=== PATIENT | male | born 1965 ===

== ENCOUNTER 2018-09-10 15:01 | Emergency (ER) | payer BC ==
[2018-09-10] MEDS ORDERED: Diph,Pert(Acell),Tet Vac 0.5 ML SYR IM ONE (15:22)
--- NOTE | 2018-09-10 15:33 | Emergency Department Record ---
History of Present Illness - General Chief Complaint: Laceration(s) Stated Complaint: LT INDEX LAC Time Seen by Provider: 09/10/18 15:22 Source: Patient Mode of Arrival: Ambulatory Limitations: No limitations - History of Present Illness Initial Commments: 52 yo male presents after injury to his left index finger. He accidentally injured it with a circular saw. He is unsure of his last tetanus vaccination. He is right handed. This accident occurred at home working on fixing up an old camper. His finger got caught by the guard and it hit the blade. He can fulling move the finger flexing and extending. No other injuries noted. -: Minutes(s) Extremity Location: Left: Hand (Index finger) Place: Home Context: Accidental (circular saw) Associated Symptoms: None Treatments Prior to Arrival: Bandage - [place] Coma Scale Eye Response: (4) Open spontaneously Motor Response: (6) Obeys commands Verbal Response: (5) Oriented Daniela Total: 15 - Related Data Hx Tetanus Toxoid Vaccination: No Patient Tetanus UTD (within 5 yrs): No Previous Rx's Medication Instructions Recorded Cephalexin [Keflex] 500 mg PO QID #28 cap 09/10/18 Allergies Allergy/AdvReac Type Severity Reaction Status Date / Time Penicillins Allergy PT UNSURE Verified 09/10/18 15:23 OF REACTION Travel Screening - Travel/Exposure Within Last 30 Days Have you traveled within the last 30 days?: No Review of Systems Constitutional: Denies: Chills, Fever, Malaise, Weakness Eyes: Denies: Eye discharge ENT: Denies: Congestion, Throat pain Respiratory: Denies: Cough Cardiovascular: Denies: Chest pain, Syncope Endocrine: Denies: Fatigue Gastrointestinal: Denies: Abdominal pain, Diarrhea, Nausea, Vomiting Genitourinary: Denies: Dysuria, Frequency, Hematuria Musculoskeletal: Reports: As per HPI, Arthralgia Skin: Reports: Other (laceration) Neurological: Denies: Numbness, Tingling Psychiatric: Denies: Anxiety Hematological/Lymphatic: Denies: Easy bleeding, Easy bruising Physical Exam - General General Appearance: Alert, Oriented x3, Cooperative, No acute distress Limitations: No limitations - Head Head exam: Atraumatic, Normal inspection - Eye Eye exam: Normal appearance. negative: Conjunctival injection - ENT ENT exam: Normal exam Ear exam: Normal external inspection Nasal Exam: Normal inspection Mouth exam: Normal external inspection - Neck Neck exam: Normal inspection - Cardiovascular Peripheral Pulses: 2+: Radial (L) - Rectal Rectal exam: Deferred - exam: Deferred - Extremities Extremities exam: Full ROM (He is able to flex and extend the finger in a full ROM), Normal capillary refill, Tenderness, Other (avulsion like laceration). negative: Normal inspection Image of Hand: 1 - avulsion like inregular laceration, 1.5cm , visible contamination or FB - Neurological Neurological exam: Alert, Motor sensory deficit, Normal gait, Oriented X3 - Psychiatric Psychiatric exam: negative: Agitated, Anxious - Skin Type of lesion: Laceration Course Vital Signs 09/10/18 15:20 Pulse Rate 89 Respiratory 20 Rate Blood Pressure 133/84 Pulse Ox 95 - Reevaluation(s) Reevaluation #1: Tetanus updated 09/10/18 15:38 Procedure: Wound cleaning, loose suturing 2 cm laceration of the index finger Wound was cleaned and prepped in sterile fashion, no residual FB identified on examination. The wound was copiously irrigated with NS high pressure. 1 liter total after hibiclens gentle scrub Wound was anesthetized with mL of 1% Lidocaine Plain with Bupivicaine 50/50 The laceration was repaired with Ethilon 4-0 sutures in interrupted fashion to only loose approximate some of the tissue. There is an area near the nail that closure is not possible. Patient tolerated the procedure well without complications. 09/10/18 15:52 The case was referred to Dr Franco for follow up next available appointment A very loose non occlusive dressing was placed We discussed reasons to return to the ED for recheck until he is seen by Dr Franco Disposition Disposition: Discharge Clinical Impression: Finger laceration Disposition: Home, Self-Care Condition: (1) Good Instructions: Laceration (ED) Additional Instructions: Call Dr Franco's office for the next available appointment Keep clean and covered until follow up Return or be seen immediately if pain, pus, fever or any concerns Prescriptions: Cephalexin [Keflex] 500 mg PO QID #28 cap Referrals: AVEL FRANCO M.D. [MEDICAL DOCTOR] - Forms: Patient Portal Access Time of Disposition: 16:16 Quality - Quality Measures Quality Measures: N/A - Blood Pressure Screening Does Patient Have Any of the Following: No Blood Pressure Classification: Pre-Hypertensive BP Reading Systolic Measurement: 133 Diastolic Measurement: 84 Screening for High Blood Pressure: < Pre-Hypertensive BP, F/U Documented > [G8950] Pre-Hypertensive Follow-up Interventions: Referral to alternative/primary care provider.
[2018-09-10] MEDS ORDERED: CEPHALEXIN 500 MG CAPSULE PO STA (15:38)
--- NOTE | 2018-09-13 08:05 | RADIOLOGY REPORT ---
EXAM: LEFT INDEX FINGER, THREE VIEWS HISTORY: CIRCULAR SAW INJURY. TECHNIQUE: Three views of the left index finger were obtained. Comparison: None. Encounter: Initial. FINDINGS: There is a comminuted fracture of the second distal phalanx with two main fracture fragments present and two or three small medial fracture fragments. There is minor apex dorsal medial angulation of the main fracture fragments. There is approximately 2 mm of anterior and proximal displacement of the distal fracture fragment. Tiny hyperdensities are noted in this region. It is indeterminate whether these represent structures outside the skin surface versus foreign bodies. No other definite acute fracture. There is a small ossific structure near the anterolateral margin of the second proximal phalanx base. This may represent an old fracture deformity. Acute fracture is unlikely. Mild degenerative spurring is scattered within the first and second digits. IMPRESSION: 1. COMMINUTED MILDLY DISPLACED AND ANGULATED FRACTURE OF THE SECOND DISTAL PHALANX WITH ASSOCIATED SOFT TISSUE LACERATION AND SOFT TISSUE SWELLING. TINY HYPERDENSITIES NOTED NEAR THE LACERATION SITE MAY REPRESENT STRUCTURES OUTSIDE THE SKIN SURFACE THOUGH TINY FOREIGN BODIES WOULD BE DIFFICULT TO EXCLUDE. 2. SMALL OSSIFIC DENSITY NEAR THE ANTEROLATERAL MARGIN OF THE SECOND PROXIMAL PHALANX BASE IS LIKELY CHRONIC. JOB NUMBER: [id number] MTDD
== END 2018-09-10 16:54 | disposition home or self-care (01) ==
LOC: ER 15:01
DX: S61.211A Laceration without foreign body of left index finger without damage to nail, initial encounter (principal); W31.2XXA Contact with powered woodworking and forming machines, initial encounter; Y92.009 Unspecified place in unspecified non-institutional (private) residence as the place of occurrence of the external cause
CPT/HCPCS: 12041; 73140; 90715; 96372; 99283; 99284